=== PATIENT | male | born 1940 | race Caucasian/White ===

== ENCOUNTER 2017-02-03 09:06 | Inpatient (IN) ==
--- NOTE | 2017-02-03 09:42 | Emergency Department Note ---
IJt Manpreet, am scribing for, and in the presence of, Courtney Wong DO 09: 35. IMarvin Debra, DO, personally performed the services described in this documentation, ascribed by Camden Waters in my presence, and it is both accurate and complete 942 . Arrival - Arrival Chief Complaint: Shortness of Breath Stated Complaint: sob ED Nursing Triage Note: pt to er 09 via ems coming from home with c/o having sob , swelling to left side of face and just not feeling well, pt states onset this am around 0200. pt was given 4mg zofran iv per ems pts. Mode of Arrival: Stretcher Limitations: No Limitations Source: Patient, Family - History of Present Illness HPI Narrative: Pt is a 77 y/o male, with PMHx of lung CA and face CA, who is brought to the ED via EMS with CC of SOB started at 0200 this AM. Pt was given 4 mg Zofran IV by EMS en route to ED. Pt has swelling due to tumor from his face CA. Pt is on hospice service and DNR. Pt is accompanied by his son who states the Pt is on home O2. Pt sees Dr. Mims. No other pain/complaints reported to ED. Onset (ago): hour(s) Consistency: constant Severity: moderate Severity scale (1-10): 3 Allergies/Adverse Reactions: Allergies Allergy/AdvReac Type Severity Reaction Status Date / Time No Known Allergies Allergy Verified 02/03/17 09:11 Home Medications: Home Medications Medication Instructions Recorded Confirmed Type Omeprazole 20 mg PO DAILY 10/12/14 02/03/17 History Amiodarone Tab [Cordarone Tab] 200 mg PO DAILY 02/03/17 02/03/17 History Amlodipine Besylate 5 mg PO DAILY 02/03/17 02/03/17 History Ascorbic Acid 500 mg PO DAILY 02/03/17 02/03/17 History Docusate Sodium Cap [Colace Cap] 100 mg PO BID 02/03/17 02/03/17 History Docusate/Senna 50-8.6 [Senokot S] 2 tablet PO BID 02/03/17 02/03/17 History Ferrous Sulfate 325 mg PO BID 02/03/17 02/03/17 History Furosemide Tab [Lasix Tab] 80 mg PO BID DIURETIC 02/03/17 02/03/17 History Lisinopril 5 mg PO DAILY 02/03/17 02/03/17 History Morphine Ir Tab [Morphine IR Tab] 15 mg PO Q4HR PRN 02/03/17 02/03/17 History Multivit-Minerals/FA/Lycopene [One 1 each PO DAILY 02/03/17 02/03/17 History Daily For Men Tablet] Rivaroxaban [Xarelto] 20 mg PO DAILY 02/03/17 02/03/17 History Scopolamine 1.5 mg Patch 1 patch TRANSDERM Q3DAY 02/03/17 02/03/17 History [Transderm Scop 1.5 mg/72 hr Patch] Sodium Chloride/Aloe Vera [Saline 1 applic BOTH NARES Q4H 02/03/17 02/03/17 History Nasal Gel] Temazepam 30 mg PO BEDTIME PRN 02/03/17 02/03/17 History Review of System - Review of System 12 point system: reviewed and no additional remarkable complaints except as stated - Review of System Constitutional: Absent: chills, diaphoresis, fever, weakness Respiratory: Present: respiratory distress Cardiovascular: Absent: chest pain Gastrointestinal: Absent: abdominal pain, nausea, vomiting Musculoskeletal: Absent: arm pain, back pain Neurological: Absent: headache, weakness Medical,Surgical,& Family Hx - Medical History Cardio: History of: Hypertension Neurology: No history of: Seizures HEENT: History of: Eye Problem (VISION PROBLEMS) Endocrine: No history of: Diabetes Mellitus (IDDM), Diabetes Mellitus (NIDDM) Respiratory: History of: Respiratory Problems (SHORTNESS OF BREATH) Musculoskeletal: No history of: Amputation - Surgical History Cardiac Surgeries: Patient Denies: Femoral-Popliteal Bypass Graft, Cardiac Catheterization, Cardiac Surgery, Carotid Endarterectomy, Internal Defibrillator, Vascular Access Devices Thoracic Surgeries: Patient denies;: Organ Transplant, Lobectomy Neurologic Surgeries: Patient denies: Neurologic Surgery HEENT Surgeries: Surgical HX of: Eye Surgery (CATARACT RT/FOR LT 12/07/14) Patient denies: Carotid Endarterectomy, Thyroid Surgery, Tonsilectomy & Adenoidectomy Abdominal Surgeries: Surgical HX of: Abdominal Surgery, Appendectomy Patient denies: Splenectomy Reproductive Surgeries: Patient denies;: Genitourinary Surgery, Vasectomy - Social History Smoking Status: Smoker, status unknown Frequency of Alcohol Use: Unknown Type of Drug Use: Unknown Exam Vital Signs: Vital Signs Temperature 98.4 F 02/03/17 09:08 Pulse Rate 79 02/03/17 09:08 Respiratory Rate 22 02/03/17 09:08 Blood Pressure 103/59 02/03/17 09:08 O2 Sat by Pulse Oximetry 98 02/03/17 09:08 - General General appearance: alert - Expanded Head Exam Head exam: Present: other (Left sided massive tumor due to CA) - Eye Eye exam: Absent: normal appearance (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 Absent: tenderness, thyromegaly - Chest Chest inspection: Present: normal inspection, symmetric chest wall rise. Absent : tenderness - Respiratory Respiratory exam: Present: normal lung sounds bilaterally, accessory muscle use (Mild accessory muscle use). Absent: respiratory distress - Cardiovascular Cardiovascular exam: Present: regular rate, normal rhythm, normal heart sounds. Absent: murmur, rubs, gallop, clicks - Abdominal Exam Abdominal exam: Present: soft, normal bowel sounds. Absent: distention, tenderness, guarding, diminished bowel sounds - Extremities Exam Extremities exam: Present: normal inspection, full ROM. Absent: tenderness - Back Exam Back exam: Present: normal inspection, full ROM. Absent: tenderness - Neurological Exam Neurological exam: Present: alert, oriented X3, CN II-XII intact, reflexes normal - Psychiatric Psychiatric exam: Present: normal affect, normal mood - Skin Skin exam: Present: warm, dry, intact, normal color. Absent: pallor Results - Labs CBC & BMP: 02/03/17 09:40 02/03/17 09:40 Lab Results: I have reviewed the patients labs Labs: Laboratory Tests 02/03/17 02/03/17 09:40 09:40 WBC 17.5 H RBC 3.04 L Hgb 9.2 L Hct 28.0 L MCH 30 MCHC 32.9 RDW 14.7 Plt Count 146 MPV 12.0 Neut % (Auto) 86.4 H Lymph % (Auto) 7.6 L Neut # (Auto) 15.2 H Lymph # (Auto) 1.3 L [place] # (Auto) 0.9 H INR 1.2 PT Patient/Control Mix 12.4 Circ Anticoag PTT 29.2 Laboratory Tests 02/03/17 09:40 Sodium 139 Potassium 3.3 L Chloride 95 L Carbon Dioxide 36 H Anion Gap 11.3 BUN 34 H Creatinine 1.00 BUN/Creatinine Ratio 34.00 H Calcium 10.5 H AST 48 H Total Creatine Kinase 29 L Troponin I 0.048 H Albumin 2.2 L Globulin 4.2 H Albumin/Globulin Ratio 0.5 L Laboratory Tests 02/03/17 09:40 B-Natriuretic Peptide 150 H Laboratory Tests 02/03/17 11:20 Lactic Acid 1.7 - Diagnostic Findings Procedure: Chest x-ray: report reviewed by me (1. Interval pulonary resection on the right demonstrated. There is no specific evidence of superimposed acute pathology. Nonspecific interstitial prominence noted bilaterally has probably chagned little since comparison.) Disposition Condition: Stable
[2017-02-03 10:02] LABS: Basophils % 0.1 % (0.0-0.8); Hemoglobin 9.2 GM/DL (14.0-18.0); Immature Granulocytes % 0.7 %; Immature Granulocytes Absolute 0.12 #; Lymphocytes # 1.3 10*3/uL (1.4-4.0); Lymphocytes % 7.6 % (21.2-54.2); Mean Corpuscular HGB Conc 32.9 GM/DL (32-36); Mean Corpuscular Hemoglobin 30 PG (27-34); Mean Corpuscular Volume 92.1 FL (87-102); Monocytes # 0.9 10*3/uL (0.11-0.8); Monocytes % 5.2 % (1.7-12.7); Neutrophils # 15.2 10*3/uL (1.4-7.4); Neutrophils % 86.4 % (38.7-73.9); Platelet Count 146 T/CUMM (130-400); Red Blood Count 3.04 MC/CUMM (3.8-5.5); Red Cell Distribution Width 14.7 % (9.3-17.3); White Blood Count 17.5 T/CUMM (4-12)
--- NOTE | 2017-02-03 10:02 | XRay Report ---
XR chest 1V portable Indication: Shortness of breath Comparison: Chest x-ray 01/31/2016. Technique: Portable AP chest was performed. Findings: Interval surgical changes noted in the right chest with partial resection of the right lung. Multiple posterior rib defects are compatible with surgery. Displaced superior pleural line measures 2.2 cm and is likely reflective of surgery this finding is stable compared to previous study. Left lung demonstrates nonspecific interstitial stranding in the perihilar regions. Mildly enlarged pulmonary arteries are suggested. [id number]-[id number] ectasia of the thoracic aorta is demonstrated. Heart size is borderline. Bones and soft tissues demonstrate no evidence of acute pathology. Impression: 1. Interval pulmonary resection on the right is demonstrated. There is no specific evidence of superimposed acute pathology. Nonspecific interstitial prominence noted bilaterally has probably changed little since comparison. 02/03/2017 9:57 AM PROCEDURE INTERPRETED AT [facility] [place] DEPARTMENT OF RADIOLOGY Final Report Signed by: Dr. Boogie Quevedo
[2017-02-03 10:11] LABS: INR 1.2; PT Patient Result 12.4 SECS; Partial Thromboplastin Time 29.2 SECS (0-40)
[2017-02-03 10:26] LABS: Alanine Aminotransferase 31 U/L (16-61); Albumin 2.2 G/DL (3.4-5.0); Alkaline Phosphatase 113 U/L (45-117); Aspartate Amino Transferase 48 U/L (0-37); Blood Urea Nitrogen 34 MG/DL (7-18); Calcium 10.5 MG/DL (8.5-10.1); Glucose 85 MG/DL (74-106); Osmolality,Calculated 283.5 MOS/KG (273-304); Potassium 3.3 MMOL/L (3.5-5.1); Sodium 139 MMOL/L (136-145); Total Protein 6.4 G/DL (6.4-8.3); Troponin I Only 0.048 NG/ML (0.00-0.045)
[2017-02-03] MEDS ORDERED: POTASSIUM CHLORIDE 20 MEQ TABLET PO STA (10:40)
[2017-02-03] MEDS ORDERED: LEVOFLOXACIN INJ 750 MG in PREMIX 1 EACH IV STA (10:41)
[2017-02-03] MEDS ORDERED: LEVOFLOXACIN INJ 150 ML IV ONE (11:02)
--- NOTE | 2017-02-03 11:53 | Hospitalist History & Physical ---
Assessment and Plan - Time spent with patient Time spent with patient: Greater than 30 minutes (1) Dyspnea Status: Acute Assessment and plan: 02/03/17 - WBC 17.5. No temperature at present. Admit to hospital services. Will start breathing treatments (Duonebs). will continue oxygen therapy. order blood culture. Order urinalysis with culture. Consult Oncology. Will discuss with Dr Thompson for further recommendations. Current Visit: Yes History of Present Illness Chief complaint: shortness of breath History of present illness: Mr. Durant is a 77 year old white male presented to [facility] ED via EMS for c/o shortness of breath with onset at 0200a.m. 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 Patient reports "can't breath for over a week" getting worse this morning. He reports that he developed a nose bleed since he has been in the ER but has resolved on exam. He reports normally ambulating with a walker but for the past 2 days has been to short of breath with exertion to ambulate. Patient verbalized seeing Dr Mims and was sent to [facility] for further care related to cancer (could not remember doctors name). No family in the room. While in the ED labs: WBC 17.5; H&H 9.2 and 28.0; Troponin - 0.048; AST 48; ALT 31; Alkaline Phos 113; BNP 150 and CXR: 1. Interval pulmonary resection on the right is demonstrated. There is no specific evidence of superimposed acute pathology. Nonspecific interstitial prominence noted bilaterally has probably changed little since comparison. One dose of levaquin was given and potassium 40 meq p.o.. Patient PCP use to go to a [facility] but no longer uses. After discussion with Dr Wong in the ED and Dr Thompson with Hospitalist Medicine , it was agreed to admit patient for further evaluation. Home medications will be reviewed and reconciliation to follow. Home Medications Medication Instructions Recorded Confirmed Type Omeprazole 20 mg PO DAILY 10/12/14 12/04/14 History Amiodarone Tab [Cordarone Tab] 200 mg PO DAILY 02/03/17 02/03/17 History Amlodipine Besylate 5 mg PO DAILY 02/03/17 02/03/17 History Ascorbic Acid 500 mg PO DAILY 02/03/17 02/03/17 History Docusate Sodium Cap [Colace Cap] 100 mg PO BID 02/03/17 02/03/17 History Docusate/Senna 50-8.6 [Senokot S] 2 tablet PO BID 02/03/17 02/03/17 History Ferrous Sulfate 325 mg PO BID 02/03/17 02/03/17 History Furosemide Tab [Lasix Tab] 80 mg PO BID DIURETIC 02/03/17 02/03/17 History Lisinopril 5 mg PO DAILY 02/03/17 02/03/17 History Morphine Ir Tab [Morphine IR Tab] 15 mg PO Q4HR PRN 02/03/17 02/03/17 History Multivit-Minerals/FA/Lycopene [One 1 each PO DAILY 02/03/17 02/03/17 History Daily For Men Tablet] Rivaroxaban [Xarelto] 20 mg PO DAILY 02/03/17 02/03/17 History Scopolamine 1.5 mg Patch 1 patch TRANSDERM Q3DAY 02/03/17 02/03/17 History [Transderm Scop 1.5 mg/72 hr Patch] Sodium Chloride/Aloe Vera [Saline 1 applic BOTH NARES Q4H 02/03/17 02/03/17 History Nasal Gel] Temazepam 30 mg PO BEDTIME PRN 02/03/17 02/03/17 History Allergies Allergy/AdvReac Type Severity Reaction Status Date / Time No Known Allergies Allergy Verified 02/03/17 09:11 Medical,Surgical,& Family Hx - Medical History Cardio: History of: Hypertension Neurology: No history of: Seizures HEENT: History of: Eye Problem (VISION PROBLEMS(enucleated left eye)) Endocrine: No history of: Diabetes Mellitus (IDDM), Diabetes Mellitus (NIDDM) Respiratory: History of: Respiratory Problems (SHORTNESS OF BREATH) Musculoskeletal: No history of: Amputation - Surgical History Cardiac Surgeries: Patient Denies: Femoral-Popliteal Bypass Graft, Cardiac Catheterization, Cardiac Surgery, Carotid Endarterectomy, Internal Defibrillator, Vascular Access Devices Thoracic Surgeries: Patient denies;: Organ Transplant, Lobectomy Neurologic Surgeries: Patient denies: Neurologic Surgery HEENT Surgeries: Surgical HX of: Eye Surgery (CATARACT RT/FOR LT 12/07/14) Patient denies: Carotid Endarterectomy, Thyroid Surgery, Tonsilectomy & Adenoidectomy Abdominal Surgeries: Surgical HX of: Abdominal Surgery, Appendectomy Patient denies: Splenectomy Reproductive Surgeries: Patient denies;: Genitourinary Surgery, Vasectomy - Social History Smoking Status: Smoker, status unknown Frequency of Alcohol Use: Unknown Type of Drug Use: Unknown Review of systems: ROS completed and pertinent positives and negatives in the HPI. Exam - Constitutional Vitals: Period Temp Pulse Resp BP Sys/Milligan Pulse Ox Last 24 Hr 98.4 F-98.4 F 79-79 22-22 103-103/59-59 98 General appearance: normal weight, no acute distress - Head Head exam: Present: normal inspection - Eye Eye exam: Present: other (left enucleated eye, large left sided facial tumor ( hx facial cancer)) - Neck Neck exam: Present: normal inspection. Absent: thyromegaly - Respiratory Respiratory exam: Present: clear to auscultation bilaterally. Absent: stridor, wheezes - Cardiovascular Cardiovascular exam: Present: regular rate and rhythm - GI/Abdominal GI/Abdominal exam: Present: normal bowel sounds, soft. Absent: distended, tenderness, rebound - Extremities Exam Extremities exam: Present: full ROM, edema (3+ pitting edema bilateral lower legs) - Neurological Exam Neurological exam: Present: alert, oriented X3, CN II-XII intact - Psychiatric Psychiatric exam: Present: normal affect, normal mood. Absent: agitated, anxious - Skin Skin exam: Present: normal color, warm, dry Results - Labs CBC & BMP: 02/03/17 09:40 02/03/17 09:40 Lab Results: I have reviewed the past 24 hour labs Labs: WBC 17.5 H&H 9.2 and 28.0 Troponin - 0.048 AST 48 ALT 31 Alkaline Phos 113 BNP 150 - Diagnostic Findings Procedure: Chest x-ray: report reviewed by me (interval pulmonary resection on the right is demonstrated; there is no specific evidence of superimposed acute pathology; nonspecific interstitial prominence noted bilaterally has probably changed little since comparison)
[2017-02-03] MEDS ORDERED: HYDROmorphone 2 MG/1 ML VIAL IV STA (12:10)
[2017-02-03] MEDS ORDERED: ACETAMINOPHEN 325 MG TABLET PO PRN (12:13)
[2017-02-03] MEDS ORDERED: ONDANSETRON 4 MG/2 ML VIAL IV PRN (12:13)
[2017-02-03] MEDS ORDERED: HYDROmorphone 2 MG/1 ML VIAL ONE (12:13)
[2017-02-03] MEDS ORDERED: POTASSIUM CHLORIDE 20 MEQ TABLET PO ONE (12:13)
[2017-02-03] MEDS ORDERED: DOCUSATE SODIUM 100 MG CAPSULE PO PRN (12:13)
[2017-02-03] MEDS ORDERED: ALBUTEROL/IPRATROPIUM 3 ML NEB RESP TX PRN (12:25)
[2017-02-03] MEDS: SODIUM CHLORIDE 0.9% 1,000 ML IV SCH (13:01)
[2017-02-03] MEDS ORDERED: MORPHINE IR 15 MG TABLET PO PRN (13:24)
[2017-02-03] MEDS ORDERED: TEMAZEPAM 15 MG CAPSULE PO PRN (13:24)
[2017-02-03] MEDS ORDERED: RIVAROXABAN 20 MG TABLET PO SCH (13:30)
[2017-02-03] MEDS ORDERED: LEVOFLOXACIN INJ 500 MG in PREMIX 1 EACH IV SCH (14:30)
[2017-02-03] MEDS ORDERED: cloNIDine 0.3 MG/24 HR PATCH TRANSDERM SCH (14:30)
[2017-02-03] MEDS: FAMOTIDINE 20 MG/2 ML VIAL IV SCH (15:58)
[2017-02-03] MEDS: SCOPOLAMINE 1.5 MG PATCH TRANSDERM SCH (16:00)
[2017-02-03] MEDS: HYDROmorphone 2 MG/1 ML VIAL IV PRN ×2 (16:13→23:22)
[2017-02-03] MEDS: DESITIN 4OZ/NYSTATIN 15 GRAM MIXTURE PASTE TOP SCH ×2 (16:20→21:24)
[2017-02-03 17:35] LABS: Apearance,Urine CLEAR (Clear); Bacteria,Urine Occasional /HPF (Few); Bilirubin,Urine Negative (Negative); Blood, Urine Negative (Negative); Glucose,Urine (UA) Negative (Negative); Ketones,Urine 5 mg/dL (Negative); Nitrite,Urine Negative (Negative); Protein,Urine Negative; RBC,Urine <1 /HPF (0-4); Squamous Epithelial Cell,Urine Occasional /HPF (0-10); Urine Color Yellow (Yellow); Urine Specific Gravity 1.009 (1.001-1.035); WBC,Urine 2 /HPF (0-6)
[2017-02-03] MEDS ORDERED: DOCUSATE SODIUM 100 MG CAPSULE PO SCH (21:00)
[2017-02-03] MEDS: SODIUM CHLORIDE 0.65% NASAL SPRAY 45 ML BOTTLE BOTH NARES SCH ×2 (21:21→21:24)
[2017-02-04] MEDS: FAMOTIDINE 20 MG/2 ML VIAL IV SCH ×2 (01:35→13:52)
[2017-02-04] MEDS: SODIUM CHLORIDE 0.65% NASAL SPRAY 45 ML BOTTLE BOTH NARES SCH ×6 (01:36→20:54)
[2017-02-04] MEDS: SODIUM CHLORIDE 0.9% 1,000 ML IV SCH ×2 (02:30→16:50)
[2017-02-04 06:48] LABS: Basophils % 0.1 % (0.0-0.8); Hematocrit 23.8 VOL% (42.0-52.0); Immature Granulocytes % 0.6 %; Immature Granulocytes Absolute 0.09 #; Lymphocytes # 1.3 10*3/uL (1.4-4.0); Lymphocytes % 8.5 % (21.2-54.2); Mean Corpuscular HGB Conc 33.2 GM/DL (32-36); Mean Corpuscular Hemoglobin 31 PG (27-34); Mean Corpuscular Volume 92.2 FL (87-102); Mean Platelet Volume 12.5 FL (9.6-12.0); Monocytes # 0.8 10*3/uL (0.11-0.8); Monocytes % 4.8 % (1.7-12.7); Neutrophils # 13.6 10*3/uL (1.4-7.4); Platelet Count 137 T/CUMM (130-400); Red Blood Count 2.58 MC/CUMM (3.8-5.5); Red Cell Distribution Width 14.8 % (9.3-17.3); White Blood Count 15.8 T/CUMM (4-12)
[2017-02-04 06:49] LABS: Hemoglobin 7.9 GM/DL (14.0-18.0)
[2017-02-04 07:07] LABS: Magnesium 1.9 MG/DL (1.8-2.4); Osmolality,Calculated 288.1 MOS/KG (273-304); Potassium 3.7 MMOL/L (3.5-5.1)
--- NOTE | 2017-02-04 08:17 | Hospitalist Progress Note ---
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 The patient is on comfort care and so I think it is appropriate to discontinue pills which he cannot swallow. I am going to discontinue Xarelto today. We are going to contact hospice and begin making arrangements for discharge either to home or to [facility] tomorrow. 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 The patient is more comfortable today after treatment with Dilaudid pain medication. We are using Catapres patch and scopolamine patch to improve his symptoms. The patient was on hospice at home prior to this hospitalization. The patient can either go back to hospice at home or transition to [facility] with hospice depending on his condition tomorrow. Exam - Constitutional Vitals: Period Temp Pulse Resp BP Sys/Milligan Pulse Ox Last 24 Hr 97.4 F-99.4 F 73-95 18-22 103-127/58-86 94-100 Exam: - Head Head exam: Present: normal inspection - Eye Eye exam: Present: other (left enucleated eye, large left sided facial tumor ( hx facial cancer)) - Neck Neck exam: Present: normal inspection. Absent: thyromegaly - Respiratory Respiratory exam: Present: clear to auscultation bilaterally. Absent: stridor, wheezes - Cardiovascular Cardiovascular exam: Present: regular rate and rhythm - GI/Abdominal GI/Abdominal exam: Present: normal bowel sounds, soft. Absent: distended, tenderness, rebound - Extremities Exam Extremities exam: Present: full ROM, edema (3+ pitting edema bilateral lower legs) - Neurological Exam Neurological exam: Present: alert, oriented X3, CN II-XII intact - Psychiatric Psychiatric exam: Present: normal affect, normal mood. Absent: agitated, anxious - Skin Skin exam: Present: normal color, warm, dry Results - Labs CBC & BMP: 02/04/17 06:00 02/04/17 06:00 Lab Results: I have reviewed the past 24 hour labs
[2017-02-04] MEDS ORDERED: NON-FORMULARY MEDICATION (Omeprazole [Omeprazole] 20 MG) PO SCH (09:00)
[2017-02-04] MEDS: LEVOFLOXACIN INJ 500 MG in PREMIX 1 EACH IV SCH (09:00)
[2017-02-04] MEDS ORDERED: AMIODARONE 200 MG TABLET PO SCH (09:00)
[2017-02-04] MEDS ORDERED: PANTOPRAZOLE 40 MG TABLET PO SCH (09:00)
[2017-02-04] MEDS: DESITIN 4OZ/NYSTATIN 15 GRAM MIXTURE PASTE TOP SCH ×2 (09:00→20:54)
[2017-02-04] MEDS ORDERED: amLODIPine 5 MG TABLET PO SCH (09:00)
[2017-02-04] MEDS ORDERED: ASCORBIC ACID 500 MG TABLET PO SCH (09:00)
--- NOTE | 2017-02-04 10:13 | Oncology Progress Note ---
Oncology Subjective PN Interval history: Mr. Durant is a patient followed by Dr. Guido Mims. I have no record of Dr. Mims seeing this patient since about July of this year. It is my understanding that he is on hospice and that there has been very little to offer him other than comfort measures. He has a huge facial mass on the left side with the left eye swollen shut and it is interfering with his ability to speak. I am surprised that it is not interfering with his airway, but it is not. In addition he is emaciated and cachectic. For the time being I recommend comfort measures. Dr. Mims will return tomorrow and he is much more familiar with the patient's case that I am. Exam - Constitutional Vitals: Period Temp Pulse Resp BP Sys/Milligan Pulse Ox Last 24 Hr 97.4 F-99.4 F 73-95 18-22 106-127/58-86 94-100 Results - Labs CBC & BMP: 02/04/17 06:00 02/04/17 06:00
--- NOTE | 2017-02-04 11:09 | EKG Report ---
Stationary ECG Study [facility] ER Test Date: 02/03/2017 9:14:47 AM Pat Name: SHANNON HELMS Department: Room: 426 Gender: M Manager Flight: : [id number] Requested by: Courtney Wong Order Number: [id number] Reading MD: RON SHEA Intervals [place] Rate: 72 P: 48 [place]: 200 QRS: 28 QRSD: 98 T: 29 QT: 425 QTc: 450 Interpretive Statements SINUS RHYTHM WITH OCCASIONAL SUPRAVENTRICULAR PREMATURE COMPLEXES ANTEROSEPTAL MYOCARDIAL INFARCTION, PREVIOUSLY CITED Electronically Signed On 02-04-17 16:01:29 CDT by ORN SHEA [email or web address]
[2017-02-04] MEDS: HYDROmorphone 2 MG/1 ML VIAL IV PRN ×3 (13:53→20:54)
[2017-02-05] MEDS: SODIUM CHLORIDE 0.65% NASAL SPRAY 45 ML BOTTLE BOTH NARES SCH ×6 (01:38→21:03)
[2017-02-05] MEDS: FAMOTIDINE 20 MG/2 ML VIAL IV SCH ×2 (01:39→15:30)
[2017-02-05] MEDS: HYDROmorphone 2 MG/1 ML VIAL IV PRN ×2 (05:39→22:17)
[2017-02-05] MEDS: SODIUM CHLORIDE 0.9% 1,000 ML IV SCH ×3 (05:41→21:18)
--- NOTE | 2017-02-05 08:40 | Oncology Progress Note ---
Oncology Subjective PN Interval history: Patient seen and examined. No family was present. Large left facial mass felt to be squamous cell carcinoma. I think this was actually a second primary though his case was difficult and making the diagnosis as he had chronic sinusitis for some time. He did have a previously resected non-small cell lung cancer I believe in early 2015. I have not seen him for approximately 7 months. I do recall him undergoing an extensive surgical operation in [place] that resulted in multiple positive margins. Based on his general appearance at this time I am in agreement with comfort measures. Exam - Constitutional Vitals: Period Temp Pulse Resp BP Sys/Milligan Pulse Ox Last 24 Hr 97.9 F-98.9 F 60-81 16-22 111-134/57-71 96-100 Results - Labs CBC & BMP: 02/04/17 06:00 02/04/17 06:00
[2017-02-05] MEDS: LEVOFLOXACIN INJ 500 MG in PREMIX 1 EACH IV SCH (09:45)
[2017-02-05] MEDS: DESITIN 4OZ/NYSTATIN 15 GRAM MIXTURE PASTE TOP SCH ×2 (09:46→21:03)
--- NOTE | 2017-02-05 16:39 | Consultation ---
Assessment and Plan - Time spent with patient Time spent with patient: Less than 30 minutes (1) Sinus, maxillary, cancer, carcinoma Status: Acute Assessment and plan: I recommend a minimally aggressive medical approach at this point consistent with Afrin and Flonase and see if that helps to open his nasal airway up some. We could consider getting a CT to evaluate the extent of the disease and rather not there would be palliative surgery that may be possible but with his medical condition I am not sure he would be able to medically tolerate or be cleared for surgery. We will try Afrin and Flonase and I will try to speak with oncology and the hospitalist and determine his medical condition in regards to being able to undergo surgery at this point I am somewhat reluctant to want to be overly aggressive as I do not want to worsen his overall condition in the hopes to improve his breathing some. Thank you very much for this consultation I will continue to follow this patient. Current Visit: Yes (2) Nasal congestion Status: Acute Current Visit: Yes (3) Dyspnea Status: Acute Current Visit: Yes (4) Squamous cell carcinoma Status: Acute Current Visit: Yes History of Present Illness - Data of Consult Patient: new to practice (t) Consult date: 02/05/17 Requesting Physician: Jef Thompson - Consult Narrative Reason for consult: Nasal congestion with metastatic squamous cell versus small cell lung cance History of present illness: Mr. Durant is a 77 year old male with an extensive medical history consistent with presumably non-small cell lung cancer with metastasis with either a secondary or primary nasal versus sinus cancer with a history of extensive operations at [facility]. He presents for shortness of breath and subsequently admitted ENT is consulted to discuss possibilities for palliative surgical treatment of nasal obstruction. CC: Debby Velazquez MD - Home Medications and Allergies Home Medications: Home Medications Medication Instructions Recorded Confirmed Type Omeprazole 20 mg PO DAILY 10/12/14 02/03/17 History Amiodarone Tab [Cordarone Tab] 200 mg PO DAILY 02/03/17 02/03/17 History Amlodipine Besylate 5 mg PO DAILY 02/03/17 02/03/17 History Ascorbic Acid 500 mg PO DAILY 02/03/17 02/03/17 History Docusate Sodium Cap [Colace Cap] 100 mg PO BID 02/03/17 02/03/17 History Docusate/Senna 50-8.6 [Senokot S] 2 tablet PO BID 02/03/17 02/03/17 History Ferrous Sulfate 325 mg PO BID 02/03/17 02/03/17 History Furosemide Tab [Lasix Tab] 80 mg PO BID DIURETIC 02/03/17 02/03/17 History Lisinopril 5 mg PO DAILY 02/03/17 02/03/17 History Morphine Ir Tab [Morphine IR Tab] 15 mg PO Q4HR PRN 02/03/17 02/03/17 History Multivit-Minerals/FA/Lycopene [One 1 each PO DAILY 02/03/17 02/03/17 History Daily For Men Tablet] Rivaroxaban [Xarelto] 20 mg PO DAILY 02/03/17 02/03/17 History Scopolamine 1.5 mg Patch 1 patch TRANSDERM Q3DAY 02/03/17 02/03/17 History [Transderm Scop 1.5 mg/72 hr Patch] Sodium Chloride/Aloe Vera [Saline 1 applic BOTH NARES Q4H 02/03/17 02/03/17 History Nasal Gel] Temazepam 30 mg PO BEDTIME PRN 02/03/17 02/03/17 History Allergies/Adverse Reactions: Allergies Allergy/AdvReac Type Severity Reaction Status Date / Time No Known Allergies Allergy Verified 02/03/17 09:11 Medical,Surgical,& Family Hx - Medical History Cardio: History of: Hypertension Neurology: No history of: Seizures HEENT: History of: Eye Problem (VISION PROBLEMS) Endocrine: No history of: Diabetes Mellitus (IDDM), Diabetes Mellitus (NIDDM) Respiratory: History of: Respiratory Problems (SHORTNESS OF BREATH) Musculoskeletal: No history of: Amputation - Surgical History Cardiac Surgeries: Patient Denies: Femoral-Popliteal Bypass Graft, Cardiac Catheterization, Cardiac Surgery, Carotid Endarterectomy, Internal Defibrillator, Vascular Access Devices Thoracic Surgeries: Patient denies;: Organ Transplant, Lobectomy Neurologic Surgeries: Patient denies: Neurologic Surgery HEENT Surgeries: Surgical HX of: Eye Surgery (CATARACT RT/FOR LT 12/07/14) Patient denies: Carotid Endarterectomy, Thyroid Surgery, Tonsilectomy & Adenoidectomy Abdominal Surgeries: Surgical HX of: Abdominal Surgery, Appendectomy Patient denies: Splenectomy Reproductive Surgeries: Patient denies;: Genitourinary Surgery, Vasectomy - Family History Family History: Reports;: Family Cancer (brother) - Social History Smoking Status: Former smoker Frequency of Alcohol Use: Unknown Type of Drug Use: Unknown Exam - Constitutional Vitals: Period Temp Pulse Resp BP Sys/Milligan Pulse Ox Last 24 Hr 97.4 F-98.9 F 53-71 16-20 113-134/67-79 93-99 General appearance: mild distress, cachectic - Head Head exam: Present: other (Large left facial and sinus tumor consistent with either primary or metastatic cancer) - Eye Eye exam: Present: periorbital swelling, other (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 and potentially destroyed secondary to metastatic spread) - ENT ENT exam: Present: other (Probably a normal exam for him currently) - Neck Neck exam: Present: lymphadenopathy - Respiratory Respiratory exam: Present: other (Shortness of breath with shallow quick breathing/tachypnea) - GI/Abdominal GI/Abdominal exam: Present: soft - Extremities Exam Extremities exam: Present: normal inspection, normal capillary refill - Neurological Exam Neurological exam: Present: alert, oriented X3 - Psychiatric Psychiatric exam: Present: normal affect, normal mood - Skin Skin exam: Present: normal color, warm Results - Labs CBC & BMP: 02/04/17 06:00 02/04/17 06:00 Lab Results: I have reviewed the past 24 hour labs
[2017-02-05] MEDS ORDERED: OXYMETAZOLINE 0.05% NASAL SPRAY 15 ML BOTTLE BOTH NARES PRN (16:45)
--- NOTE | 2017-02-05 17:24 | Hospitalist Progress Note ---
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 He has been on liquid diet. He was under home hospice, but presented as he had dysphagia as well as some difficulty breathing. Dr Mims oncologist has recommended comfort measures. He was seen by Dr. Davis from ENT and I agree with medical management. Spoke to his son at bedside today and he does not want any heroic measures but would consider anything to help him make more comfortable. Exam - Constitutional Vitals: Period Temp Pulse Resp BP Sys/Milligan Pulse Ox Last 24 Hr 97.4 F-98.9 F 53-71 16-18 113-147/67-79 93-99 Exam: General: No Acute Distress HEENT: Large left facial and sinus tumor Neck: Supple, No JVD Chest: Clear to auscultation B/L CV: S1 + S2 audible without murmur, gallop or rub Abd: soft, NT, Non-distended, BS + Ext: No edema Skin: No purpura, bruising or rash Rheumatologic: No Joint deformities Neurologic: Strengtg 5/5 all extremities, no gross sensory deficits Results - Labs CBC & BMP: 02/04/17 06:00 02/04/17 06:00 - Impressions Assessment and Plan (1) Squamous cell carcinoma Status: Acute Assessment and plan: The patient has squamous cell carcinoma of the right lung and large metastasis in the left maxilla. Appreciate ENT recommendations by Dr. Davis, continue Flonase and Afrin hopefully responds to some extent. His CODE STATUS is DNR. Current Visit: Yes (2) Dyspnea Status: Acute Current Visit: Yes (3) Dysphagia Status: Acute Current Visit: Yes Continue liquid diet as tolerated
--- NOTE | 2017-02-05 19:01 | CT Report ---
CT sinus wo con Indication: Facial mass Comparison: None. Technique: CT of the sinuses was performed without the administration of intravenous contrast. Multiple contiguous axial images were obtained from the mid calvarium through the palate. Coronal MPR series was additionally submitted for interpretation. The CT examination was performed using one or more of the following dose reduction techniques: Automatic exposure control, adjustment of the mA and kV according to patient size, use of acute or iterative reconstruction techniques. Findings: The degree of obliquity as well as lack of intravenous contrast and lack of soft tissue algorithm for image acquisition significantly reduces diagnostic quality of this study. There is a large mass that appears to completely replaced the left orbit and appears to erode the skull base within the anterior cranial fossa. Additional mass within the left lateral neck is present possibly with some evidence of calcification and/or surgical clips, further detail is simply not possible. The intracranial contents are not well visualized however that does appear to be some full-thickness erosion of the anterior cranial fossa floor. Additionally soft tissue mass appears to extend into the paranasal sinuses bilaterally and on the oblique sagittal sequence provided, appears to possibly erode not only the clivus but extend into the sella. Further diagnostic information is simply not possible. Left mandible is completely replaced with tumor. Impression: 1. Severely limited study. In absence, there is a large mass within the nasopharynx that erodes the floor of the anterior cranial fossa, full-thickness erosion is suggested. In addition, there is erosion of the clivus with extension into the sella and a large soft tissue mass additionally noted within the left neck that erodes the left mandible. 02/05/2017 6:44 PM PROCEDURE INTERPRETED AT [facility] DEPARTMENT OF RADIOLOGY Final Report Signed by: Dr. Boogie Quevedo
[2017-02-05] MEDS: FLUTICASONE 50 MCG NASAL SPRAY 16 GM BOTTLE BOTH NARES SCH (21:03)
[2017-02-06] MEDS: SODIUM CHLORIDE 0.65% NASAL SPRAY 45 ML BOTTLE BOTH NARES SCH ×6 (01:38→21:11)
[2017-02-06] MEDS: HYDROmorphone 2 MG/1 ML VIAL IV PRN ×6 (02:00→21:10)
[2017-02-06] MEDS: FAMOTIDINE 20 MG/2 ML VIAL IV SCH ×2 (02:05→13:53)
[2017-02-06] MEDS: SCOPOLAMINE 1.5 MG PATCH TRANSDERM SCH (09:10)
[2017-02-06] MEDS: DESITIN 4OZ/NYSTATIN 15 GRAM MIXTURE PASTE TOP SCH ×2 (09:14→21:10)
[2017-02-06] MEDS: LEVOFLOXACIN INJ 500 MG in PREMIX 1 EACH IV SCH (09:14)
[2017-02-06] MEDS: FLUTICASONE 50 MCG NASAL SPRAY 16 GM BOTTLE BOTH NARES SCH (09:15)
[2017-02-06] MEDS ORDERED: fentaNYL 25 MCG/HR PATCH TRANSDERM SCH (09:30)
--- NOTE | 2017-02-06 09:34 | Oncology Progress Note ---
Oncology Subjective PN Interval history: Mr. Aranda was awake and interactive this morning and I spent several minutes in his room along with case maker and nursing staff. He is having difficulty swallowing pills as well with oral intake. We did discuss the possibility of a gastric feeding tube but then he seemed to desire less invasive measures He is receiving IV fluids at this time He has IV Dilaudid which she received 1 dose around 3 AM. I am going to place a fentanyl patch for more consistent analgesia. Case management has spoken with his son who will take him home with hospice at the time of discharge. Exam - Constitutional Vitals: Period Temp Pulse Resp BP Sys/Milligan Pulse Ox Last 24 Hr 98.2 F-99.3 F 58-73 12-20 124-147/63-71 92-97 Results - Labs CBC & BMP: 02/04/17 06:00 02/04/17 06:00
[2017-02-06] MEDS: SODIUM CHLORIDE 0.9% 1,000 ML IV SCH ×2 (10:24→21:10)
--- NOTE | 2017-02-06 11:11 | Progress Note ---
Assessment and Plan - Time spent with patient Time spent with patient: Less than 30 minutes (1) Sinus, maxillary, cancer, carcinoma Status: Acute Assessment and plan: I recommend a minimally aggressive medical approach at this point consistent with Afrin and Flonase and see if that helps to open his nasal airway up some. We could consider getting a CT to evaluate the extent of the disease and rather not there would be palliative surgery that may be possible but with his medical condition I am not sure he would be able to medically tolerate or be cleared for surgery. We will try Afrin and Flonase and I will try to speak with oncology and the hospitalist and determine his medical condition in regards to being able to undergo surgery at this point I am somewhat reluctant to want to be overly aggressive as I do not want to worsen his overall condition in the hopes to improve his breathing some. Thank you very much for this consultation I will continue to follow this patient. 02/06/[address] his bony architecture has been completely destroyed by tumor invasion more left than right but really bilaterally. Additionally there is probable anterior skull base erosion with possible extension of metastasis. Additionally his tumor is causing the bulk of the obstruction. Palliative surgery to debulk the nasal tumor I would consider extremely risky because of the lack of surgical landmarks and the propensity for the tumor to hemorrhage in an anemic patient. I would recommend against surgical intervention and would prefer continued minimally aggressive medical management of his nasal congestion. If his oncologist and primary care physician feel strongly that it would benefit the patient greatly and feels that he would be medically safe for cleared for surgery I would entertain the possibility but I would not promote more encourage more aggressive or invasive techniques to improve his nasal airway. Thank you very much for consulting me on this case if there are any additional questions or concerns or if the oncologist and primary care physician would like to talk more with me I am open to the discussion. I will sign off on this case unless I hear otherwise. Current Visit: Yes (2) Nasal congestion Status: Acute Current Visit: Yes (3) Dyspnea Status: Acute Current Visit: Yes (4) Squamous cell carcinoma Status: Acute Current Visit: Yes Family Medicine PN Sub Interval history: Follow-up for nasal congestion secondary to metastatic spread of cancer for patient on hospice ENT consulted to evaluate any palliative care that may augment the patient's nasal airway and help the patient breathe. A CT was performed yesterday to visualize the amount of obstruction and get a better understanding for what the obstruction is and any possible options that may or may not exist for the patient. As I mentioned yesterday considering the patient 's case and his overall medical state I am reluctant/resistant to wanting to perform surgery or be more aggressive medical therapy with Flonase and afrin. Exam (Progress Note) - Constitutional Vitals: Period Temp Pulse Resp BP Sys/Milligan Pulse Ox Last 24 Hr 98.2 F-99.3 F 58-73 12-20 124-147/63-71 91-97 General appearance: mild distress, cachectic - Head Head exam: Present: other (Disfigured left face secondary to tumor involvement and destruction) - Eye Eye exam: Present: other (Disfigured/destroyed left ocular cavity and orbit) - ENT ENT exam: Present: other (Baseline exam for him bilateral complete nasal obstruction CT reviewed revealing diffuse bony destruction with extension and obstruction secondary to tumor) - Neck Neck exam: Present: lymphadenopathy - Respiratory Respiratory exam: Present: other (Shortness of breath which is considered baseline for him) - Extremities Exam Extremities exam: Present: normal inspection - Neurological Exam Neurological exam: Present: alert, oriented X3 - Psychiatric Psychiatric exam: Present: normal affect (Baseline for him), normal mood - Skin Skin exam: Present: normal color, warm Results - Labs CBC & BMP: 02/04/17 06:00 02/04/17 06:00 Lab Results: I have reviewed the past 24 hour labs
--- NOTE | 2017-02-06 16:32 | Hospitalist Progress Note ---
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 At this point the patient is terminal due to very advanced disease, and he and his son are only interested in comfort measures. Exam - Constitutional Vitals: Period Temp Pulse Resp BP Sys/Milligan Pulse Ox Last 24 Hr 97.2 F-99.3 F 59-73 12-22 124-139/63-75 91-97 Exam: General: No Acute Distress HEENT: Large left facial and sinus tumor Neck: Supple, No JVD Chest: Clear to auscultation B/L CV: S1 + S2 audible without murmur, gallop or rub Abd: soft, NT, Non-distended, BS + Ext: No edema Skin: No purpura, bruising or rash Rheumatologic: No Joint deformities Neurologic: Strengtg 5/5 all extremities, no gross sensory deficits Results - Labs CBC & BMP: 02/04/17 06:00 02/04/17 06:00 - Impressions (1) Squamous cell carcinoma Status: Acute Assessment and plan: The patient has squamous cell carcinoma of the right lung and large metastasis in the left maxilla. Appreciate ENT recommendations by Ryan Leyva. His CODE STATUS is DNR. Son is considering home with hospice but feels likes his father is more comfortable in the hospital Current Visit: Yes (2) Dyspnea Status: Acute Current Visit: Yes This is stable (3) Dysphagia Status: Acute Current Visit: Yes Continue liquid diet as tolerated
[2017-02-07] MEDS: SODIUM CHLORIDE 0.65% NASAL SPRAY 45 ML BOTTLE BOTH NARES SCH ×6 (01:59→20:40)
[2017-02-07] MEDS: FAMOTIDINE 20 MG/2 ML VIAL IV SCH ×2 (02:20→15:44)
[2017-02-07] MEDS: SODIUM CHLORIDE 0.9% 1,000 ML IV SCH ×2 (02:21→20:41)
[2017-02-07] MEDS: HYDROmorphone 2 MG/1 ML VIAL IV PRN ×5 (04:48→22:07)
[2017-02-07] MEDS: LEVOFLOXACIN INJ 500 MG in PREMIX 1 EACH IV SCH (08:52)
[2017-02-07] MEDS: FLUTICASONE 50 MCG NASAL SPRAY 16 GM BOTTLE BOTH NARES SCH (08:59)
[2017-02-07] MEDS: DESITIN 4OZ/NYSTATIN 15 GRAM MIXTURE PASTE TOP SCH ×2 (09:00→20:42)
--- NOTE | 2017-02-07 13:31 | Hospitalist Progress Note ---
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 The patient is on comfort care and so I think it is appropriate to discontinue pills which he cannot swallow. The patient will continue on IV hydration pain and anxiety medications. Current Visit: Yes (2) Dyspnea Status: Acute Current Visit: Yes Hospitalist: Subjective Interval history: The patient is having difficulty with oral intake due to tumor in the nose and throat. The patient is appropriate for inpatient hospice because he cannot be cared for at home or at the custodial. The patient's length of life is not expected to be long. The patient requires intravenous pain and anxiety medication. I discussed with him and he wishes to have comfort measures only. 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 Absent: thyromegaly - Respiratory Respiratory exam: Present: clear to auscultation bilaterally. Absent: stridor, wheezes - Cardiovascular Cardiovascular exam: Present: regular rate and rhythm - GI/Abdominal GI/Abdominal exam: Present: normal bowel sounds, soft. Absent: distended, tenderness, rebound - Extremities Exam Extremities exam: Present: full ROM, edema (3+ pitting edema bilateral lower legs) - Neurological Exam Neurological exam: Present: alert, oriented X3, CN II-XII intact - Psychiatric Psychiatric exam: Present: normal affect, normal mood. Absent: agitated, anxious - Skin Skin exam: Present: normal color, warm, dry Results - Labs CBC & BMP: 02/04/17 06:00 02/04/17 06:00 Lab Results: I have reviewed the past 24 hour labs
[2017-02-07] MEDS ORDERED: LORazepam 2 MG/1 ML VIAL IV PRN (13:32)
[2017-02-08] MEDS: SODIUM CHLORIDE 0.65% NASAL SPRAY 45 ML BOTTLE BOTH NARES SCH ×4 (01:16→13:00)
[2017-02-08] MEDS: FAMOTIDINE 20 MG/2 ML VIAL IV SCH ×2 (03:17→16:54)
[2017-02-08] MEDS: HYDROmorphone 2 MG/1 ML VIAL IV PRN (07:15)
[2017-02-08 07:30] VITALS: BP 132/69
[2017-02-08] MEDS ORDERED: NALOXONE 0.4 MG/ML VIAL IV PRN ×2 (08:35→17:32)
--- NOTE | 2017-02-08 08:37 | Oncology Progress Note ---
Oncology Subjective PN Interval history: Mr. Aranda was minimally responsive today. No family was present. I believe he is in pain and uncomfortable given the very large nature and size of his left facial tumor. He remains on a low-dose fentanyl patch and I will add a Dilaudid [employer] at a low continuous dose. I am decreasing his hydration. Exam - Constitutional Vitals: Period Temp Pulse Resp BP Sys/Milligan Pulse Ox Last 24 Hr 97.2 F-98.9 F 68-95 5-20 132-150/69-79 89-93 Results - Labs CBC & BMP: 02/04/17 06:00 02/04/17 06:00
[2017-02-08] MEDS: SODIUM CHLORIDE 0.9% 1,000 ML IV SCH ×2 (08:38→16:54)
[2017-02-08] MEDS ORDERED: HYDROmorphone PCA 30 MG/30 ML SYRINGE IV SCH ×2 (09:00→18:00)
[2017-02-08 10:17] LABS: Apearance,Urine Slightly Hazy (Clear); Bilirubin,Urine Negative (Negative); Blood, Urine Negative (Negative); Glucose,Urine (UA) Negative (Negative); Hyaline Casts,Urine 11 /LPF (0-3); Ketones,Urine 5 mg/dL (Negative); Mucus,Urine Occasional /LPF (Occasional); Nitrite,Urine Negative (Negative); Protein,Urine Negative; RBC,Urine 1 /HPF (0-4); Squamous Epithelial Cell,Urine Occasional /HPF (0-10); Urine Color Yellow (Yellow); Urine Specific Gravity 1.009 (1.001-1.035); Urine Urobilinogen < 2.0 EU/DL (0.2-1.0); WBC,Urine 3 /HPF (0-6)
[2017-02-08] MEDS: FLUTICASONE 50 MCG NASAL SPRAY 16 GM BOTTLE BOTH NARES SCH (10:48)
[2017-02-08] MEDS: DESITIN 4OZ/NYSTATIN 15 GRAM MIXTURE PASTE TOP SCH (10:48)
[2017-02-08] MEDS ORDERED: LORazepam 2 MG/1 ML VIAL IV PRN (17:32)
[2017-02-08] MEDS ORDERED: SODIUM CHLORIDE 0.9% 1,000 ML IV SCH (18:00)
--- NOTE | 2017-02-09 02:35 | Discharge Summary ---
Hospital Course - Hospital Course Hospital Course: Patient was admitted to our service on 02/03/2017. He is a 77-year-old white male was complaining of shortness of breath with the onset occurring at 2 AM. He was on hospice on home oxygen therapy. 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 Patient said that he could not breathe for over a week is getting worse. He developed a nosebleed and has been in the ER but it had resolved on admission. We have admitted the patient through the emergency room. Chest examination revealed upper airway congestion treating with IV hydration and pain medicine. Put him on IV Levaquin to to treat for an aspiration pneumonia. Oncology was consulted for their evaluation. They continued IV hydration and IV anxiety medications but DC 'd all p.o. medications patient could not tolerate by mouth medications. Patient decided that he wished to be comfort measures only. And those were instituted. Patient was subsequently being transferred to hospice on inpatient basis. Patient succumbed to his illness at 2 AM on 02/09/2017. Discharge Plan - Discharge Data Disposition: Hospice - Medical Facility Condition at Discharge: - Discharge Medications No Action Omeprazole 20 mg PO DAILY Scopolamine 1.5 mg Patch [Transderm Scop 1.5 mg/72 hr Patch] 1 patch TRANSDERM Q3DAY Furosemide Tab [Lasix Tab] 80 mg PO BID DIURETIC Ferrous Sulfate 325 mg PO BID Docusate Sodium Cap [Colace Cap] 100 mg PO BID Temazepam 30 mg PO BEDTIME PRN PRN Reason: Sleep Rivaroxaban [Xarelto] 20 mg PO DAILY Lisinopril 5 mg PO DAILY Amiodarone Tab [Cordarone Tab] 200 mg PO DAILY Multivit-Minerals/FA/Lycopene [One Daily For Men Tablet] 1 each PO DAILY Ascorbic Acid 500 mg PO DAILY Docusate/Senna 50-8.6 [Senokot S] 2 tablet PO BID Amlodipine Besylate 5 mg PO DAILY Sodium Chloride/Aloe Vera [Saline Nasal Gel] 1 applic BOTH NARES Q4H Morphine Ir Tab [Morphine IR Tab] 15 mg PO Q4HR PRN PRN Reason: Pain - Follow Up or Referral - Forms/Instructions Exam - Constitutional Vitals: Period Temp Pulse Resp BP Sys/Milligan Pulse Ox Last 24 Hr 98.9 F 95 8-20 132/69 89 Discharge Results Labs on day of discharge: Labs from last 24 hours 02/08/17 10:12 Urine Color Yellow Urine Appearance Slightly hazy Urine pH 5.0 Ur Specific [place]chard 1.009 Urine Protein Negative Urine Glucose (UA) Negative Urine Ketones 5 Urine Blood Negative Urine Nitrate Negative Urine Bilirubin Negative Urine Urobilinogen < 2.0 H Urine Leukocytes Negative Urine RBC 1 Urine WBC 3 Ur Squamous Epith Cells Occasional Hyaline Casts 11 Urine Mucus Occasional Ur Culture Indicated? Not indicated DS: Provider Date of admission: 02/03/17 11:38 Primary care physician: . No PCP Attending physician on admission: Jef Thompson MD Consults: 02/03/17 12:13 Consult to Physician [CONS] Routine Comment: Lung CA and Facial CA Consulting Provider: Guido Hensley When should Consulting Provider be notified: Now Person Notified: Dr. 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 Admitted to Room 426 Thank You 02/03/17 12:16 Consult to Case Mgmt/Social Srvs [CONS] Routine Reason for Case Mgmt/Social Srvs: Discharge Planning Consult to Occupational Therapy [CONS] Routine Reason for Occupational Therapy: Evaluate and Treat Consult to Physical Therapy [CONS] Routine Reason for Physical Therapy: Evaluate and Treat 02/03/17 13:46 Consult to Dietitian [CONS] Routine Reason for Dietitian: Diet Recommendations 02/03/17 17:00 Consult to Pastoral Services [CONS] Routine Comment: Pastoral Screen: Request [employer]inist Visit Pastoral Screen Source of Request: Patient 02/05/17 07:33 Consult to Physician [CONS] Routine Comment: Patient known to you Consulting Provider: Guido Mims 02/05/17 13:06 Consult to Physician [CONS] Routine Comment: lung ca mets to L. maxilla Consulting Provider: Ryan Mohan Consulting Provider Notified: Yes When should Consulting Provider be notified: Now Consult to Specialist Group: ENT When should Consulting Provider be notified: Now Person Notified: PAM Date Notified: 02/05/17 Time Notified: 13:23 Discharging clinician: Guido Torres MD
[2017-02-09] MEDS ORDERED: fentaNYL 25 MCG/HR PATCH TRANSDERM SCH (09:00)
== END 2017-02-09 02:05 | disposition expired | DRG 180 ==
LOC: EDBD → EDUNIT# → N.ED 09:06 → N.EDINP 11:38 → SUATTDRO 11:38 → N.4E 12:10
PROVIDERS: ADMIT Internal Medicine; ATTEND Hospitalist